=== PATIENT | female | born 1975 | race Asian ===

== ENCOUNTER → 2017-06-28 | Outpatient (CLI) | payer BC ==
--- NOTE | 2017-06-29 16:10 | MAM ---
EXAM DESCRIPTION: 3D Diagnostic, Bilateral : Digital Mammography. CLINICAL HISTORY: 41 years Female BREAST LUMP right breast lump. No family history of breast cancer. Premenopausal.. COMPARISON: Baseline study at this facility.. Bilateral targeted breast ultrasound on this visit. No prior reports available. TECHNIQUE: Bilateral CC and MLO projection full-field images, 3-D tomosynthesis digital mammographic technique. Also bilateral synthesized CC/ MLO full-field images. CAD not utilized. FINDINGS: The breast parenchymal density pattern is: Heterogeneously dense breast tissue, which may obscure small masses. No skin thickening or nipple retraction bilateral dense tissue predominantly in the middle thirds in the upper outer quadrants. Minimal asymmetry in the right breast at the 4185-5336 clock position upper outer quadrant. Similar density to surrounding soft tissues with no microcalcifications. Also left breast at the 1200-100 clock position upper outer quadrant. Similar density to the surrounding soft tissues with no microcalcifications. Solitary microcalcification in the middle third of the left breast.. ULTRASOUND: Heterogeneous fatty and fibroglandular tissues are noted at the 1230 clock position of the left breast 5 cm from the nipple. No discrete solid mass or cyst. No large calcification or parenchymal edema. No skin thickening. No abnormal vascularity. Scanning 1130 clock position of the right breast 5 cm from the nipple. No discrete solid mass or cyst. No large calcification or parenchymal edema. No skin thickening. No abnormal vascularity. IMPRESSION: BI-RADS CATEGORY: 2 - BENIGN FINDINGS. FOLLOW UP: Routine digital bilateral screening, one year interval from June 2017. The FINDINGS and the follow-up plan were reviewed in person with the patient after the examination. Written communication explaining the IMPRESSION and follow-up will be mailed to the patient and referring care provider. According to the [employer], yearly mammograms are recommended starting at age 40 and continuing as long as a woman is in good health. Any breast change noted on a breast self-exam should be reported promptly to the patient's healthcare provider. Breast MRI is recommended for women with an approximately 20-25% or greater lifetime risk of breast cancer, including women with a strong family history of breast or ovarian cancer and women who have been treated for Hodgkin's disease. A negative mammographic report should not delay tissue diagnosis in patients with significant clinical history or physical findings. Extremely dense breast tissue limits the sensitivity of digital mammography. Electronically signed by: Jet Murray MD 06/29/2017 4:09 PM [facility]
--- NOTE | 2017-06-29 16:11 | US ---
EXAM DESCRIPTION: Breast,Bilateral: Ultrasound CLINICAL HISTORY: 41 yearsFemaleLUMP. Right breast. COMPARISON: Digital 3-D, tomosynthesis diagnostic bilateral breast on the same visit. TECHNIQUE: Transcutaneous scanning of the upper-outer quadrant of the right breast in the upper outer quadrant of the left breast utilizing two-dimensional and Doppler modes. Scanning performed by the signal maintainer helper and Dr. Murray. FINDINGS: Heterogeneous fatty and fibroglandular tissues are noted at the 1230 clock position of the left breast 5 cm from the nipple. No discrete solid mass or cyst. No large calcification or parenchymal edema. No skin thickening. No abnormal vascularity. Scanning 1130 clock position of the right breast 5 cm from the nipple. No discrete solid mass or cyst. No large calcification or parenchymal edema. No skin thickening. No abnormal vascularity. IMPRESSION: 1. Bi-Rads Category 2: Benign. 2. Please refer to bilateral 3-D tomosynthesis diagnostic mammogram examination and report on this visit. The FINDINGS and the follow-up plan were reviewed in person with the patient after the examination. Written communication explaining the IMPRESSION and follow-up will be mailed to the patient and referring care provider. Electronically signed by: Jet Murray MD 06/29/2017 4:09 PM [employer]PERING [employer]PER[employer]
== END | disposition home or self-care (01) ==
LOC: MAMMO 10:45
PROVIDERS: ATTEND Obstetrics & Gynecology
DX: Z12.31 Encounter for screening mammogram for malignant neoplasm of breast (principal)
CPT/HCPCS: 76641; G0204; G0279

== ENCOUNTER 2019-05-07 09:14 | Emergency (ER) | payer BC ==
[2019-05-07] MEDS ORDERED: METHOCARBAMOL 750 MG TAB PO ONE (09:53)
[2019-05-07] MEDS ORDERED: KETOROLAC TROMETHAMINE INJ 30 MG/ML VIAL IM ONE (09:53)
[2019-05-07 09:54] VITALS: TEMP 97.5; O2SAT 100
--- NOTE | 2019-05-07 09:56 | ED.PDOC ---
History of Present Illness - General Chief Complaint: Back Pain or Injury Stated Complaint: Neck,shoulder,back discomfort Time Seen by Provider: 05/07/19 09:47 - History of Present Illness Initial Comments: Patient is a 43 y.o. w/ no sig pmh who presents c/o L sided back pain radiating to her arm and shoulder. Says pain is 8/10 in severity, sharp in nature. Worse when she moves her arm, tries to sleep, and works out. Reports pain started a week ago while playing golf and has since then been persistent. She has seen a chiropracter twice for the pain. She took ibuprofen once, which does help. She does note that when she takes a deep breath it exacerbates the pain. Allergies/Adverse Reactions: Allergies NO KNOWN ALLERGY Allergy (Verified 05/07/19 09:47) Home Medications: Ambulatory Orders Valacyclovir HCl 500 mg PO DAILY 01/06/19 Naproxen 500 mg PO BID PRN 10 Days #20 tab 05/07/19 Review of Systems - Review of Systems Constitutional: States: no symptoms reported EENTM: States: no symptoms reported Respiratory: States: no symptoms reported Cardiology: States: no symptoms reported Gastrointestinal/Abdominal: States: no symptoms reported Genitourinary: States: no symptoms reported Musculoskeletal: States: back pain, muscle pain, muscle stiffness Skin: States: no symptoms reported Neurological: States: no symptoms reported Endocrine: States: no symptoms reported Hematologic/Lymphatic: States: no symptoms reported All other Systems: Reviewed and Negative Past Medical History (General) - Patient Medical History Hx Seizures: No Hx Stroke: No Hx Asthma: No Hx of COPD: No Hx Cardiac Disorders: No Hx Congestive Heart Failure: No Hx Pacemaker: No Hx Hypertension: No Hx Diabetes: No Hx MRSA: No Surgical History: Hysterectomy - Vaccination History Hx Tetanus, Diphtheria Vaccination: - unknown date Hx Influenza Vaccination: No Hx Pneumococcal Vaccination: No - Social History Hx Tobacco Use: No Hx Alcohol Use: No Hx Substance Use: No Hx Physical Abuse: No Hx Emotional Abuse: No - Female History Hx Last Menstrual Period: 08/26/15 Patient : No Family Medical History - Family History Mother Family History: Unknown Living Status: Unknown Hx Family Cancer: Yes - lungs-mom Physical Exam - Physical Exam General Appearance: Alert, Comfortable Eyes, Ears, Nose, Throat Exam: PERRL/EOMI, normal ENT inspection Neck Exam: non-tender, full range of motion Cardiovascular/Respiratory: normal peripheral pulses, bradycardia, other - 2+ radial pulse b/l Peripheral Pulses: radial,right: 2+, radial,left: 2+ Gastrointestinal/Abdominal: non tender, soft Back Exam: other - L thoracic paraspinal tenderness, and L scapular tenderness Extremity Exam: no evidence of injury, normal range of motion Neurologic: no motor/sensory deficits, alert, normal mood/affect, oriented x 3 Skin Exam: normal color, warm/dry Progress - Progress Progress: 05/07/19 09:58 MDM: Well appearing 43 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 Pain reproducible on exam. Likely MSK. Plan for XR, ekg, treat pain, reassess. 05/07/19 10:54 Spoke with radiologist regarding XR, he does not believe there is subQ air. Be lieves hair is causing artifact. - Results/Orders Results/Orders: XR L shoulder IMPRESSION: Negative for fracture or dislocation. Electronically signed by: Jeffery Sher MD 05/07/2019 10:39 AM CDT XR Chest IMPRESSION: No acute process is identified in the chest. Electronically signed by: Jeffery Sher MD 05/07/2019 10:39 AM CDT - EKG/XRAY/CT EKG: Gibson Comments: Sinus gibson, normal axis, normal intervals, no ischemic changes Departure - Departure Clinical Impression: Back strain Qualifiers: Encounter type: initial encounter Qualified Code(s): S39.012A - Strain of muscle, fascia and tendon of lower back, initial encounter Disposition: Discharge to Home or Self Care Departure Forms: ED Discharge - Pt. Copy, Patient Portal Self Enrollment Instructions: DI for Low Back Pain Referrals: Rashaad Powell MD [Primary Care Provider] - 1-2 Weeks Prescriptions: Naproxen 500 mg PO BID PRN 10 Days #20 tab PRN Reason: Pain Home Medications: Ambulatory Orders Valacyclovir HCl 500 mg PO DAILY 01/06/19 Naproxen 500 mg PO BID PRN 10 Days #20 tab 05/07/19
--- NOTE | 2019-05-07 10:40 | RAD ---
EXAM DESCRIPTION: Chest,2 Views CLINICAL HISTORY: pain COMPARISON: Previous study January 06, 2019 TECHNIQUE: PA/lateral FINDINGS: There is no acute appearing cardiac or pulmonary abnormality. Heart size is prominent with normal pulmonary vascularity. No pleural effusion or pneumothorax. Lungs are clear with no consolidating infiltrate. Lateral view shows intact sternum and T-spine. IMPRESSION: No acute process is identified in the chest. Electronically signed by: Jeffery Sehr MD 05/07/2019 10:39 AM CDT
--- NOTE | 2019-05-07 10:41 | RAD ---
EXAM DESCRIPTION: Shoulder,Left two x-ray Views CLINICAL HISTORY: pain COMPARISON: None Available. TECHNIQUE: Two views of the left shoulder. FINDINGS: There is adequate internal and external rotation. There is no fracture or dislocation. There are no significant degenerative changes observed. AC joint appears intact. No focal bone lesion. IMPRESSION: Negative for fracture or dislocation. Electronically signed by: Jeffery Sher MD 05/07/2019 10:39 AM CDT
[2019-05-07 11:56] VITALS: BP 118/78
== END 2019-05-07 11:57 | disposition home or self-care (01) ==
LOC: ER 09:14
DX: S39.012A Strain of muscle, fascia and tendon of lower back, initial encounter (principal); R00.1 Bradycardia, unspecified; M54.6 Pain in thoracic spine; M25.512 Pain in left shoulder; X58.XXXA Exposure to other specified factors, initial encounter; Y92.9 Unspecified place or not applicable; Y93.53 Activity, golf
CPT/HCPCS: 71046; 73030; 93005; J1885